=== PATIENT | male | born 1990 | race Caucasian/White ===

== ENCOUNTER → 2017-08-13 | Outpatient (CLI) | payer OTHER | LOC: FIMAGING 07:41 | PROVIDERS: ATTEND Internal Medicine | DX: Z03.89 Encounter for observation for other suspected diseases and conditions ruled out (principal) ==

== ENCOUNTER 2018-03-27 15:27 | Emergency (ER) | payer SELFPAY ==
[2018-03-27] MEDS ORDERED: AMOXICILLIN/CLAVULANATE POT 875/125 MG TAB PO ONE (15:46)
[2018-03-27] MEDS ORDERED: DEXAMETHASONE 4 MG TAB PO ONE (15:46)
--- NOTE | 2018-03-27 15:50 | EDPHY ---
Addendum entered and electronically signed by Lisset Coker PAC 03/27/18 16:13: Time of discharge patient now requesting laboratory studies and CT soft tissue of his neck to evaluate for post pharyngeal abscess. IV access and laboratory studies obtain. Given 1 L normal saline and IV Toradol 30 mg. 1645: Laboratory studies reviewed. No signs of leukocytosis/anemia/platelet dysfunction/OMAYRA/electrolyte imbalance. 1725: End of shift. Signed over to Ramez Box pending CT scan results. Suspect patient will be discharged home with Augmentin and steroid burst. Original Note: H & P Stated Complaint: throat pain/ flu like symptoms Source: Patient Exam Limitations: No limitations - Medical/Surgical History Hx Asthma: No Hx Chronic Respiratory Disease: No Hx Diabetes: No Hx Cardiac Disease: No Hx Renal Disease: No Hx Cirrhosis: No Hx Alcoholism: No Hx HIV/AIDS: No Hx Splenectomy or Spleen Trauma: No Other PMH: scaticia, tachycardia - Social History Smoking Status: Former smoker Time Seen by Provider: 03/27/18 15:47 HPI/ROS: HPI: This is a 27-year-old male who appears with Chief Complaint: Sore throat, flu-like symptoms Location: Throat Quality: Sore Duration: 2 days Signs and Symptoms: no fever, no nausea, no vomiting, no diarrhea, no urinary symptoms, no chest pain, no shortness of breath, no wheezing, no cough, no neck stiffness, no joint pain, no swollen glands, no ear pain, no rash, + body aches , no drooling, no trismus Timing: Rapid onset, constant Severity: Moderate Context: Patient presents with complaints of sore throat and body aches accompanied by fatigue for the last 2 days. He was seen by his primary care provider with rapid negative strep test and placed on penicillin. Patient reports that he has taken 3 doses of the penicillin and has had no improvement. He reports that he feels dizzy with standing. Sucking on cough drops as needed for throat discomfort. Notes decreased appetite but able to eat and drink without difficulty. Modifying Factors: Penicillin Comment: ROS: A comprehensive 10 system review of systems is otherwise negative aside from elements mentioned in the history of present illness. MEDICAL/SURGICAL/SOCIAL HISTORY: Medical history: Sciatica, tachycardia Surgical history: Denies Social history: Former smoker Family history noncontributory. CONSTITUTIONAL: Well-appearing adult white male, awake and alert, no obvious distress HEENT: Atraumatic and normocephalic, PERRL, EOMI. Nares patent; no rhinorrhea; no nasal mucosal edema. Tympanic membranes clear. Oropharynx clear, no tonsillar hypertrophy, uvula midline, no exudate and moist pink mucosa. Airway patent. No lymphadenopathy. No meningismus. Cardiovascular: Normal S1/S2, mild tachycardia, regular rhythm, without murmur rub or gallop. PULMONARY/CHEST: Symmetrical and nontender. Clear to auscultation bilaterally. Good air movement. No accessory muscle usage. ABDOMEN: Soft, nondistended, nontender, no rebound, no guarding, no peritoneal signs, no masses or organomegaly. No CVAT. EXTREMITIES: 2/2 pulses, strength 5/5, no deformities, no clubbing, no cyanosis or edema. NEUROLOGICAL: no focal neuro deficits. GCS 15. SKIN: Warm and dry, no erythema. no rash. Good capillary refill. (Lisset Coker) Constitutional: Initial Vital Signs Temperature (C) 36.8 C 03/27/18 15:31 Heart Rate 104 H 03/27/18 15:31 Respiratory Rate 18 03/27/18 15:31 Blood Pressure 152/101 H 03/27/18 15:31 O2 Sat (%) 98 03/27/18 15:31 O2 Delivery Mode Room Air Allergies/Adverse Reactions: No Known Allergies Allergy (Unverified 03/27/18 15:31) Home Medications: Medication Instructions Recorded Amoxicillin/Clavulanate Pot 875 mg PO BID #20 tab 03/27/18 [Augmentin 875 MG TAB (*)] Gabapentin 03/27/18 Penicillin VK 03/27/18 predniSONE 50 mg PO DAILY #4 tablet 03/27/18 Medical Decision Making ED Course/Re-evaluation: Vital signs reviewed and show mild tachycardia. No signs of tonsillar abscess/meningitis/airway compromise/dehydration/otitis media Given Augmentin and Decadron 10 mg Advised to stop taking penicillin and start taking Augmentin as well as prednisone daily x4 days. This patient was seen under the supervision of my secondary supervising physician. I evaluated care for this patient independently. Discussed this patient with Dr. Hawkins. (Lisset Coker) 7:10 p.m.: CT of the neck is negative for abscess interpreted by staff radiologist with images reviewed myself.. I evaluated the patient at this time. He is sleeping, easily woken. Voice is normal no hot potato voice no trismus no drooling. He will be discharged with his Augmentin. He has been given Decadron already. Usual and customary pharyngitis precautions and instructions provided. (Trista Box) Differential Diagnosis: Differential diagnosis includes but is not limited to influenza, tonsillitis, strep pharyngitis, upper respiratory infection. (Lisset Coker) - Data Points Laboratory Results: Laboratory Results 03/27/18 16:31 03/27/18 16:31 03/27/18 03/27/18 16:31 16:31 WBC 6.12 10^3/uL 10^3/uL (3.80-9.50) RBC 4.66 10^6/uL 10^6/uL (4.40-6.38) Hgb 14.2 g/dL g/dL (13.7-17.5) Hct 40.0 % % (40.0-51.0) MCV 85.8 fL fL (81.5-99.8) MCH 30.5 pg pg (27.9-34.1) MCHC 35.5 g/dL g/dL (32.4-36.7) RDW 11.8 % % (11.5-15.2) Plt Count 245 10^3/uL 10^3/uL (150-400) MPV 9.7 fL fL (8.7-11.7) Neut % (Auto) 61.2 % % (39.3-74.2) Lymph % (Auto) 28.8 % % (15.0-45.0) [place] % (Auto) 6.7 % % (4.5-13.0) Eos % (Auto) 2.3 % % (0.6-7.6) Baso % (Auto) 0.8 % % (0.3-1.7) Nucleat RBC Rel Count 0.0 % % (0.0-0.2) Absolute Neuts (auto) 3.75 10^3/uL 10^3/uL (1.70-6.50) Absolute Lymphs (auto) 1.76 10^3/uL 10^3/uL (1.00-3.00) Absolute Monos (auto) 0.41 10^3/uL 10^3/uL (0.30-0.80) Absolute Eos (auto) 0.14 10^3/uL 10^3/uL (0.03-0.40) Absolute Basos (auto) 0.05 10^3/uL 10^3/uL (0.02-0.10) Absolute Nucleated RBC 0.00 10^3/uL 10^3/uL (0-0.01) Immature Gran % 0.2 % % (0.0-1.1) Immature Gran # 0.01 10^3/uL 10^3/uL (0.00-0.10) Sodium 141 mEq/L mEq/L (135-145) Potassium 3.9 mEq/L mEq/L (3.3-5.0) Chloride 106 mEq/L mEq/L (97-110) Carbon Dioxide 25 mEq/l mEq/l (22-31) Anion Gap 10 mEq/L mEq/L (6-14) BUN 7 mg/dL mg/dL (7-23) Creatinine 0.8 mg/dL mg/dL (0.7-1.3) Estimated GFR > 60 Glucose 96 mg/dL mg/dL (70-100) Calcium 9.5 mg/dL mg/dL (8.5-10.4) Medications Given: Discontinued Medications Amoxicillin/Clavulanate Potassium (Augmentin 875mg) 875 mg PO EDNOW ONE PRN Reason: Protocol Stop: 03/27/18 15:47 Last Admin: 03/27/18 16:09 Dose: 875 mg Dexamethasone (Decadron) 10 mg PO EDNOW ONE Stop: 03/27/18 15:47 Last Admin: 03/27/18 16:09 Dose: 10 mg Sodium Chloride (Ns) 1,000 mls @ 0 mls/hr IV EDNOW ONE; Wide Open PRN Reason: Protocol Stop: 03/27/18 16:14 Last Admin: 03/27/18 16:22 Dose: 1,000 mls Ketorolac Tromethamine (Toradol) 30 mg IVP EDNOW ONE Stop: 03/27/18 16:14 Last Admin: 03/27/18 16:21 Dose: 30 mg Departure - Departure Disposition: Home, Routine, Self-Care Clinical Impression: Pharyngotonsillitis Condition: Good Instructions: Pharyngitis (ED), Tonsillitis (ED) Additional Instructions: Stop taking penicillin and start taking Augmentin twice a day times 10 days. Do not skip a dose. Complete entire course of antibiotics. Start taking steroids tomorrow. Consume a minimum of 8-10 glasses of water or electrolyte fluid replacement drinks that include Gatorade, Powerade, Pedialyte. Eat a bland diet for the next 48 hours and then slowly advance as tolerated. Rest as much as possible until you are feeling better. Take Tylenol 650 mg every 4 hr and/or ibuprofen 600 mg every 8 hr as needed for pain, fever. Return to the ER immediately if you cannot swallow, have drooling, fevers, neck stiffness, cannot open your jaw, or any other symptoms that concern you. Referrals: [facility],. [Clinic] - As per Instructions Stand Alone Forms: Work Excuse Prescriptions: Amoxicillin/Clavulanate Pot [Augmentin 875 MG TAB (*)] 875 mg PO BID #20 tab predniSONE 50 mg PO DAILY #4 tablet
[2018-03-27] MEDS ORDERED: NS 1,000 ML IV ONE (16:13)
[2018-03-27] MEDS ORDERED: KETOROLAC 30 MG/1 ML SDV IVP ONE (16:13)
[2018-03-27 16:47] LABS: PLATELET COUNT 245 10^3/uL (150-400)
[2018-03-27] MEDS ORDERED: IOPAMIDOL (ISOVUE-300) 100 ML BTL ONE (16:58)
[2018-03-27 19:28] VITALS: BP 132/78
== END 2018-03-27 19:27 | disposition home or self-care (01) ==
DX: J02.9 Acute pharyngitis, unspecified (principal); R00.0 Tachycardia, unspecified; Z87.891 Personal history of nicotine dependence
CPT/HCPCS: 96374; J1885; Q9967